=== PATIENT | male | born 1940 | race Caucasian/White ===

== ENCOUNTER 2019-06-07 08:59 | Emergency (ER) | payer OTHER, MEDICARE, SELFPAY ==
[2019-06-07 08:51] VITALS: BP 192/99; PULSE 68; RESP 20; TEMP 36.7; O2SAT 94; BMI 28.3
--- NOTE | 2019-06-07 08:57 | ED_ITS ---
Entered by Jay Diana, acting as scribe for Bautista Burns DO HPI - Nausea/Vomiting/Diarrhea General: Chief complaint: General Medical Stated complaint: flu like symptoms Time Seen by Provider: 06/07/19 09:00 History of Present Illness: HPI Narrative: 79 yo male presents with flu like symptoms. pt states that he has nausea and chills. pt states that he has had some burning with urination. Pt states that he took some nightquil, that seemed to help. Pt states that he has taken his morning medications. MD elicited complaint: nausea Onset (ago): day(s) Associated nausea: Yes Severity: mild Relieving factors: medication Associated symtoms: Reports cough, dysuria, fevers/chills and nausea; Denies anxiety, change in vision, chest pain, dizziness, fatigue, headache(s), malaise, palpitations or syncope Review of Systems Const: Reports: chills; Denies: fever, body aches, fatigue, malaise or night sweats Eyes: Denies: change in vision or blurry vision ENMT: Denies: throat pain, oral sores/lesions, dental pain, nasal discharge or nasal congestion Card: Denies: chest pain, palpitations, irregular heart rhythm, edema, syncope, shortness of breath on exertion, shortness of breath when lying down or leg pain with exertion Resp: Reports: wheezing; Denies: shortness of breath, productive cough or non-productive cough GI: Reports: nausea : Reports: difficulty urinating and painful urination; Denies: flank pain, urinary frequency, urinary urgency, urinary incontinence or blood in urine Musc: Denies: neck pain, back pain, extremity pain, extremity swelling, joint pain or joint swelling Skin/Breast: Denies: rash, itching or redness Neuro: Denies: headache, numbness in extremities, weakness in extremities, changes in sensation, lack of coordination, difficulty walking, frequent falls, dizziness, vertigo or confusion Psych: Denies: anxiety, depression, loss of interest, visual hallucinations, auditory hallucinations, suicidal ideation or homicidal ideation Endo: Denies: excessive urination, excessive thirst, tired all the time or cold intolerance Preston/Lymph: Denies: easy bruising, easy bleeding, petechiae, enlarged lymph nodes or tender lymph nodes PFSH ED PFSH: Statuses (acute, chronic, etc) shown below reflect problem list status as previously entered and may not be historically accurate Medical History Coronary artery disease (Acute) Diabetes mellitus (Acute) Hyperlipidemia (Acute) Social History Smoking and tobacco status: former smoker Physical Exam Const: COMMON NORMALS: average body habitus, oriented x3 and alert GENERAL APPEARANCE: cooperative, comfortable, well kempt and well developed NUTRITIONAL APPEARANCE: obese ORIENTATION/CONSCIOUSNESS: Yes awake, Yes oriented to person and Yes oriented to place HENMT: COMMON NORMALS: normocephalic, head/scalp atraumatic, EAC's normal, TM's normal bilaterally, external nose normal, moist oral mucous membranes and oropharynx normal HEAD & SCALP: normocephalic and atraumatic NOSE: external nose normal EXTERNAL AUDITORY CANAL: EAC's normal TYMPANIC MEMBRANE: TM's normal bilaterally MOUTH: oral and palatal mucosa normal, lip normal and tongue normal THROAT: posterior oropharynx normal and tonsils normal Eye: COMMON NORMALS: PERRL, EOMs intact bilaterally, conjunctivae normal and no scleral icterus CONJUNCTIVA: Yes conjunctivae normal PUPIL: Yes PERRL Neck/C-Spine: COMMON NORMALS: full ROM, no lymphadenopathy, supple, no meningeal signs and thyroid normal THYROID: thyroid normal and asymmetrical Lymph: LYMPHATIC: no lymphadenopathy noted Resp: COMMON NORMALS: normal respiratory effort, no retractions and no use of accessory muscles AUSCULTATION: wheezes lower bilaterally Cardio: COMMON NORMALS: regular rate and regular rhythm RATE: regular rate RHYTHM: regular rhythm HEART SOUNDS: no murmurs GI: COMMON NORMALS: normal to inspection, nondistended, normoactive bowel sounds, soft to palpation and no hepatosplenomegaly PALPATION: Yes soft and Yes no hepatosplenomegaly : COMMON NORMALS: Yes no CVA tenderness BLADDER/KIDNEY EXAM: Yes no CVA tenderness Back/Pelvis: COMMON NORMALS: no CVA tenderness LUMBAR SPINE/LOWER BACK: Yes normal to inspection Extremity: COMMON NORMALS: no clubbing, cyanosis or edema, no calf tenderness and no pedal edema Neuro: COMMON NORMALS: oriented x3 SENSORIUM/ORIENTATION: Yes alert, Yes oriented to person and Yes oriented to place MENINGEAL SIGNS: Yes no meningeal signs Psych: APPEARANCE: Yes well kempt Skin: COMMON NORMALS: no rashes or lesions noted and skin turgor normal GENERAL SKIN EXAM: no rashes or lesions noted and turgor normal Course ED course: Reviewed findings with patient. Recommend follow-up with primary care doctor in the within the next week to recheck sodium Vital Signs: Vital signs: Vital Signs Temperature 98.1 F 06/07/19 08:51 Pulse Rate 68 06/07/19 08:51 Respiratory Rate 20 H 06/07/19 08:51 Blood Pressure 192/99 06/07/19 08:51 Pulse Oximetry 94 06/07/19 08:51 MDM - Nausea/Vomiting/Diarrhea Lab Data: Labs: Lab Results 06/07/19 06/07/19 06/07/19 Range/Units 09:09 09:09 09:09 WBC 8.9 (4.0-10.0) 10^3/ uL RBC 4.89 (4.1-5.3) 10^6/u L Hgb 14.7 (11.7-16.6) g/dL Hct 42.4 (42.0-52.0) % MCV 86.7 (80-94) fL MCH 30.1 (28.0-34.0) pg MCHC 34.7 (30.0-36.0) g/dL RDW 14.5 (12.1-15.1) % Plt Count 275 (130-400) 10^3/c mm MPV 8.8 (7.4-10.4) fL Neut % (Auto) 72.6 % Lymph % (Auto) 13.7 % Jessamine % (Auto) 9.0 % Eos % (Auto) 3.1 % Baso % (Auto) 0.9 % Neut # (Auto) 6.5 (1.8-7.7) 10^3/u L Lymph # (Auto) 1.2 (0.8-4.8) 10^3/u L Jessamine # (Auto) 0.8 (0.2-0.9) 10^3/u L Eos # (Auto) 0.3 (0.0-0.8) 10^3/u L Baso # (Auto) 0.1 (0.0-0.1) 10^3/u L Nucleated RBC % (a uto) 0 % Nucleated RBCs # 0.0 /100WBC Sodium 129 L (136-145) mmol/L Potassium 3.4 L (3.5-5.1) mmol/L Chloride 91 L (98-107) mmol/L Carbon Dioxide 24 (22-29) mmol/L Anion Gap 17.4 (5-19) BUN 11 (8-23) mg/dL Creatinine 1.1 (0.7-1.2) mg/dL Glucose 115 H (74-106) mg/dL Calcium 9.2 (8.8-10.2) mg/Dl Total Bilirubin 0.4 (0.15-1.2) mg/dL AST 19 (0-40) U/L ALT 16 (0-41) U/L Alkaline Phosphata se 50 (40-130) IU/L Total Protein 7.0 (6.6-8.7) g/dL Albumin 4.1 (3.5-5.2) g/dL Globulin 2.9 (1.3-4.6) g/dL Influenza Type A A g Negative (Negative) POC Influenza B Ag Negative (Negative) Imaging Data^: CXR: Radiologist's impression: Patient: Trung Walsh Unit #: [id number] : 1940 Age/Sex: 79 / M ADM Date: 06/07/19 Loc: ER Room/Bed: Attending Dr: Ordering Provider/Ordering MD: Bautista Burns DO Date of Service: 06/07/19 Procedure(s): XR chest 1V portable [id number] Accession Number(s): [id number] Report Number: [id number] WS: [id number] PORTABLE CHEST HISTORY: cough COMPARISON: 11/12/2014 Mild new interstitial thickening at the lung bases. No pneumonia. Normal vasculature. No pleural effusion or pneumothorax. Cardiac size: Normal. Mediastinum/Aorta: Normal mediastinum. No osseous abnormality seen. XR/XR chest 1V portable [id number] IMPRESSION: Very mild bibasilar areas of pneumonitis. Dictated By: Suyapa Nuñez DO Signed By: Suyapa Nuñez DO Signed Date/Time: 06/07/19928 DD/ 7 Discharge Plan Discharge Patient Disposition: Home, Self-Care Clinical Impression: Pneumonia, Hyponatremia Condition: Stable Prescriptions: New doxycycline hyclate 100 mg capsule 100 mg PO BID 10 Days Qty: 20 RF: 0 albuterol sulfate 90 mcg/actuation HFA aerosol inhaler 2 inh INHALATION Q4H PRN (Reason: shortness of breath or wheezing) Qty: 18 RF: 0 Discharge Orders: Discharge Order (Routine); Ordered 06/07/19 Ordered By: Bautista Burns Referrals: Yovani Soto [Primary Care Provider] - Discharge Diet: Advance as tolerated Discharge Activity: Increase activity as tolerated Coding Level of Care Code ED Rabbit Fancier for Chg Fwd Exam Problem Focused The documentation recorded by the Lebron pereira Kialy, accurately reflects the service I personally performed and the decisions made by Grant cervantes Curtis L, DO
--- NOTE | 2019-06-07 08:57 | W.ED.URI ---
HPI - URI/Sore Throat General: Stated Complaint: flu like symptoms Coding Level of Care Code ED Director Of Marketing And Promotions for Andrea Kelly
--- NOTE | 2019-06-07 09:00 | XR_ITS ---
WS: [id number] PORTABLE CHEST HISTORY: cough COMPARISON: 11/12/2014 Mild new interstitial thickening at the lung bases. No pneumonia. Normal vasculature. No pleural effu justina or pneumothorax. Cardiac size: Normal. Mediastinum/Aorta: Normal mediastinum. No osseous abnormality seen. XR/XR chest 1V portable [id number] IMPRESSION: Very mild bibasilar areas of pneumonitis.
[2019-06-07 09:14] LABS: Basophils # 0.1 10^3/uL (0.0-0.1); Basophils % 0.9 %; Eosinophils # 0.3 10^3/uL (0.0-0.8); Eosinophils % 3.1 %; Hematocrit 42.4 % (42.0-52.0); Hemoglobin 14.7 g/dL (11.7-16.6); Lymphocytes # 1.2 10^3/uL (0.8-4.8); Lymphocytes % 13.7 %; Mean Corpuscular HGB Conc 34.7 g/dL (30.0-36.0); Mean Corpuscular Hemoglobin 30.1 pg (28.0-34.0); Mean Corpuscular Volume 86.7 fL (80-94); Mean Platelet Volume 8.8 fL (7.4-10.4); Monocytes # 0.8 10^3/uL (0.2-0.9); Neutrophils # 6.5 10^3/uL (1.8-7.7); Neutrophils % 72.6 %; Nucleated Red Blood Cells % 0 %; Platelet Count 275 10^3/cmm (130-400); Red Blood Count 4.89 10^6/uL (4.1-5.3); Red Cell Distribution Width 14.5 % (12.1-15.1); White Blood Count 8.9 10^3/uL (4.0-10.0)
--- NOTE | 2019-06-07 09:14 | PC.NURSE ---
portable xray at bedside
[2019-06-07 09:34] LABS: Alanine Aminotransferase 16 U/L (0-41); Albumin Level 4.1 g/dL (3.5-5.2); Alkaline Phosphatase 50 IU/L (40-130); Anion Gap 17.4 (5-19); Aspartate Amino Transferase 19 U/L (0-40); Blood Urea Nitrogen 11 mg/dL (8-23); Calcium 9.2 mg/Dl (8.8-10.2); Carbon Dioxide 24 mmol/L (22-29); Chloride 91 mmol/L (98-107); Globulin 2.9 g/dL (1.3-4.6); Glucose 115 mg/dL (74-106); Potassium 3.4 mmol/L (3.5-5.1); Sodium 129 mmol/L (136-145); Total Bilirubin 0.4 mg/dL (0.15-1.2)
[2019-06-07] MEDS: sodium chloride 0.9% 1,000 ML 999 ML IV (09:46)
[2019-06-07 10:08] LABS: Influenza A by IFA Negative (Negative); Influenza B by IFA Negative (Negative)
[2019-06-07 10:38] VITALS: BP 192/97; PULSE 78; O2SAT 97
== END 2019-06-07 11:00 | disposition home or self-care (01) ==
LOC: ER 11:13
PROVIDERS: Emergency Provider Family Medicine; Family Provider Family Medicine; PCP Family Medicine
DX: J18.9 Pneumonia, unspecified organism (principal); E87.1 Hypo-osmolality and hyponatremia; I25.10 Atherosclerotic heart disease of native coronary artery without angina pectoris; E11.9 Type 2 diabetes mellitus without complications; E78.5 Hyperlipidemia, unspecified; Z87.891 Personal history of nicotine dependence
CPT/HCPCS: 36415; 71045; 80053; 85025; 87804; 96360; 99281; J7030

== ENCOUNTER 2019-06-25 09:07 | Emergency (ER) | payer OTHER, SELFPAY ==
[2019-06-25 09:13] VITALS: BP 184/98; PULSE 80; RESP 16; TEMP 36.6; O2SAT 98; BMI 25.6
[2019-06-25 09:19] VITALS: BP 184/98
--- NOTE | 2019-06-25 09:25 | W.ED.MALEGU ---
HPI - Male Genitourinary General: Chief complaint: Urogenital-Male Stated complaint: Poss UTI Time Seen by Provider: 06/25/19 09:09 Source: patient Mode of arrival: ambulatory Limitations: no limitations History of Present Illness: HPI Narrative: Patient is an 79-year-old male who presents to ED today with complaints of dysuria, urinary urgency, and urinary hesitancy over the past 2 days; he tells me he has a previous history of UTIs that have presented similarly; he does not complain of abdominal or flank pain; denies fevers MD Complaint: dysuria Onset (ago): day(s) Relieving factors: none Exacerbating factors: urination Associated symptoms: Reports dysuria; Deny hematuria, nausea, urinary incontinence or vomiting Review of Systems GI: Denies: abdominal pain, nausea or vomiting : Reports: difficulty urinating, painful urination, urinary frequency, urinary urgency and urinary hesitancy; Denies: flank pain, decreased urine ouput, urinary incontinence, blood in urine, genital pain, testicular pain, testicular mass or scrotal swelling PFSH ED PFSH: Statuses (acute, chronic, etc) shown below reflect problem list status as previously entered and may not be historically accurate Social History Smoking and tobacco status: never smoked Physical Exam Const: COMMON NORMALS: no apparent distress, average body habitus, oriented x3, no limitations, healthy appearing, alert and well nourished Resp: COMMON NORMALS: normal respiratory effort and clear to auscultation bilaterally AUSCULTATION: clear to auscultation bilaterally Cardio: COMMON NORMALS: regular rate and regular rhythm RATE: regular rate RHYTHM: regular rhythm GI: COMMON NORMALS: normal to inspection, nondistended, normoactive bowel sounds, soft to palpation and non-tender PALPATION: Yes soft : COMMON NORMALS: Yes no CVA tenderness, Yes scrotum normal and Yes no scrotal swelling BLADDER/KIDNEY EXAM: Yes no CVA tenderness PENIS: normal penis MEATUS: meatus normal TESTES: Yes testicular lie normal Back/Pelvis: COMMON NORMALS: no CVA tenderness Neuro: COMMON NORMALS: oriented x3 SENSORIUM/ORIENTATION: Yes alert Skin: COMMON NORMALS: no rashes or lesions noted GENERAL SKIN EXAM: no rashes or lesions noted Course Vital Signs: Vital signs: Vital Signs Temperature 97.8 F 06/25/19 09:13 Pulse Rate 16 L 06/25/19 09:53 Respiratory Rate 73 H 06/25/19 09:53 Blood Pressure 149/93 06/25/19 09:53 Pulse Oximetry 98 06/25/19 09:53 MDM - Male MDM Narrative: Medical decision making narrative: pts urine has absolutely no signs of infection; he does tell me he has had issues with his prostate previously and sees Dr. Allison; recommend he follow up with their office as this might be causing his symptoms Lab Data: Labs: Lab Results 06/25/19 Range/Units 09:29 Urine Color Straw (Yellow) Urine Appearance Clear (CLEAR) Urine pH 5 (5-7) Ur Specific Gravit y 1.010 (1.005-1.030) Urine Protein Neg (Negative) Urine Glucose (UA) Norm (Normal) Urine Ketones Negative (Negative) Urine Occult Blood Neg (Negative) Urine Nitrate Negative (Negative) Urine Bilirubin Neg (NEGATIVE) Urine Urobilinogen Norm (Negative) mg/dL Ur Leukocyte Gail ase Negative (Negative) Urine RBC None (0-2) /hpf Urine WBC None (0-5) /hpf Ur Squamous Epith Cells None (0-5) Urine Bacteria None (NONE) Discharge Plan Discharge Patient Disposition: Home, Self-Care Clinical Impression: Dysuria Condition: Stable Prescriptions: No Action albuterol sulfate 90 mcg/actuation HFA aerosol inhaler 2 inh INHALATION Q4H PRN (Reason: shortness of breath or wheezing) Qty: 18 RF: 0 Discharge Orders: Discharge Order (Routine); Ordered 06/25/19 Ordered By: Samia Vu Referrals: Jonh Allison MD [Physician] - Yovani Soto [Primary Care Provider] - Activity Restrictions/Additional Instructions: As discussed please follow up with Dr. Allison as your urine does not show any signs of infection today. Discharge Date/Time: 06/25/19 09:54 Coding Level of Care Code ED Recreational Leader for Fcog Fwd Exam Problem Focused
[2019-06-25 09:36] LABS: Bilirubin Urine Neg (NEGATIVE); Blood Urine Neg (Negative); Glucose Urine UA Norm (Normal); Ketones Urine Negative (Negative); Leukocyte Esterase Urine Negative (Negative); Nitrate Urine Negative (Negative); Protein Urine Neg (Negative); Urine Appearance Clear (CLEAR); Urine Color Straw (Yellow); Urobilinogen Urine Norm (Negative); pH Urine 5 (5-7)
[2019-06-25 09:41] LABS: Add Urine Culture? No
[2019-06-25 09:53] VITALS: BP 149/93; PULSE 16; RESP 73; O2SAT 98
--- NOTE | 2019-06-27 13:59 | DCPLANNER ---
customer logistics manager had message to schedule a follow up appointment for patient with Dr. Allison. customer logistics manager called the office of Dr. Allison, spoke with Anushka, gave clinic patients information. customer logistics manager was told that patients information would be printed and given to Cherelle for review. Clinic will call patient with appointment information, case loader operator will call for appointment information.
--- NOTE | 2019-06-30 09:18 | DCPLANNER ---
Addendum entered by Laura Gomez 10/20/19 13:34: Patients appointment scheduled for 08.16.19 was rescheduled for Friday, November 29, 2019 at 1:15. Original Note: Patient has an appointment scheduled for Friday, August 16, 2019 at 8:[address] Allison.
== END 2019-06-25 09:54 | disposition home or self-care (01) ==
PROVIDERS: Emergency Provider Physician Assistant; Family Provider Family Medicine; PCP Family Medicine
DX: R30.0 Dysuria (principal)
CPT/HCPCS: 81001; 99282

== ENCOUNTER → 2020-06-11 10:24 | Outpatient (BNVA) | payer OTHER, SELFPAY | PROVIDERS: Family Provider Family Medicine; PCP Family Medicine; Visit Provider Urology | DX: R32 Unspecified urinary incontinence (principal); N40.1 Benign prostatic hyperplasia with lower urinary tract symptoms | CPT/HCPCS: 81003 ==